=== PATIENT | male | born 1945 | race Caucasian/White ===

== ENCOUNTER 2019-07-21 14:26 | Emergency (ER) | payer MEDICARE, OTHER ==
--- NOTE | 2019-07-21 14:49 | ER Document Report ---
ED Medical Screen (RME) - General Chief Complaint: Fall Injury Stated Complaint: FALL/HEAD PAIN/HAND PAIN Time Seen by Provider: 07/21/19 14:43 Primary Care Provider: ROCIO STAUFFER MD [Primary Care Provider] - Follow up as needed Notes: HPI: 73-year-old male on Xarelto presenting for evaluation of head and hand injury from a mechanical fall. Tripped over a flower pot and fell forward. Complains of abrasion over the anterior right knee but denies difficulty with walking or hip pain. Complains of pain over the dorsal lateral aspect of the right hand and fifth finger. Complains of abrasion over the left eyebrow and face with mild headache in this region. Denies numbness or tingling in the fingertips. I have greeted and performed a rapid initial assessment of this patient. A comprehensive ED assessment and evaluation of the patient, analysis of test results and completion of the medical decision making process will be conducted by additional ED providers PHYSICAL EXAMINATION: Abrasions are noted to the right lateral eyebrow and cheek. Mild tenderness on palpation. No definitive cervical spine tenderness on exam. Abrasion over the anterior right knee but able to fully range the right leg at the knee without difficulty, no hip discomfort on range of motion. Deformity is noted to the right fifth finger and lateral aspect of the right hand with bruising and soft tissue swelling noted I have greeted and performed a rapid initial assessment of this patient. A comprehensive ED assessment and evaluation of the patient, analysis of test results and completion of medical decision making process will be conducted by an additional ED providers. - Related Data Allergies/Adverse Reactions: Penicillins Allergy (Verified 07/21/19 14:42) Physical Exam - Vital signs Vitals: Temp Pulse Resp BP Pulse Ox 98.3 F 60 20 148/69 H 96 07/21/19 14:30 07/21/19 14:30 07/21/19 14:30 07/21/19 14:30 07/21/19 14:30 Course - Vital Signs Vital signs: Temp Pulse Resp BP Pulse Ox 98.3 F 60 20 148/69 H 96 07/21/19 14:30 07/21/19 14:30 07/21/19 14:30 07/21/19 14:30 07/21/19 14:30 Doctor's Discharge - Discharge Referrals: EH,ROCIO, MD [Primary Care Provider] - Follow up as needed
--- NOTE | 2019-07-21 15:19 | RADIOLOGY REPORT (SQ) ---
EXAM DESCRIPTION: HAND RIGHT 3 VIEWS IMAGES COMPLETED DATE/TIME: 07/21/2019 3:10 pm REASON FOR STUDY: fall COMPARISON: None. EXAM PARAMETERS: NUMBER OF VIEWS: Three views. TECHNIQUE: AP, lateral and oblique radiographic images acquired of the right hand. LIMITATIONS: None. FINDINGS: MINERALIZATION: Normal. BONES: No acute fracture or dislocation. No worrisome bone lesions. Old ulnar styloid fracture. JOINTS: Degenerative changes in the 1st carpal/metacarpal joint. Degenerative changes in the proxima l and distal interphalangeal joints. SOFT TISSUES: No soft tissue swelling. No foreign body. OTHER: No other significant finding. IMPRESSION: Degenerative and chronic posttraumatic changes. No acute process. TECHNICAL DOCUMENTATION: JOB ID: [id number] 2010 [employer]- All Rights Reserved Reading location - IP/workstation name: [email or web address]
--- NOTE | 2019-07-21 15:27 | RADIOLOGY REPORT (SQ) ---
EXAM DESCRIPTION: CT HEAD WITHOUT IMAGES COMPLETED DATE/TIME: 07/21/2019 3:15 pm REASON FOR STUDY: trauma COMPARISON: None. TECHNIQUE: Axial images acquired through the brain without intravenous contrast. Images reviewed wi th bone, brain and subdural windows. Additional sagittal and coronal reconstructions were generated. Images stored on PACS. All CT scanners at this facility use dose modulation, iterative reconstruction, and/or weight based d osing when appropriate to reduce radiation dose to as low as reasonably achievable (ALARA). [facility]: Dose Right [facility]: CareDose [facility]: Dose Right [facility]: Teradose 4D [facility]: [employer] RADIATION DOSE: CT Rad equipment meets quality standard of care and radiation dose reduction techniq ues were employed. CTDIvol: 48.6 mGy. DLP: 930 mGy-cm. mGy. LIMITATIONS: None. FINDINGS: VENTRICLES: Prominent ventricles secondary to involutional atrophy. CEREBRUM: No masses. No hemorrhage. No midline shift. No evidence for acute infarction. Areas of l ow density in the white matter most likely chronic small vessel ischemic changes. CEREBELLUM: No masses. No hemorrhage. No alteration of density. No evidence for acute infarction. EXTRAAXIAL SPACES: No fluid collections. No masses. ORBITS AND GLOBE: No intra- or extraconal masses. Normal contour of globe without masses. CALVARIUM: No fracture. PARANASAL SINUSES: No fluid or mucosal thickening. SOFT TISSUES: No mass or hematoma. OTHER: No other significant finding. IMPRESSION: Involutional changes. Chronic microvascular ischemic changes. No acute intracranial im aging findings. EVIDENCE OF ACUTE STROKE: NO. COMMENT: Quality ID # [id number]: Final reports with documentation of one or more dose reduction techniques (e.g., Automated exposure control, adjustment of the mA and/or kV according to patient size, use of iterative reconstruction technique) TECHNICAL DOCUMENTATION: JOB ID: [id number] 2010 [employer]- All Rights Reserved Reading location - IP/workstation name: [email or web address]
--- NOTE | 2019-07-21 15:30 | RADIOLOGY REPORT (SQ) ---
EXAM DESCRIPTION: CT CERVICAL SPINE WITHOUT IMAGES COMPLETED DATE/TIME: 07/21/2019 3:15 pm REASON FOR STUDY: trauma COMPARISON: None. TECHNIQUE: Axial images acquired through the cervical spine without intravenous contrast. Images re viewed with lung, soft tissue and bone windows. Reconstructed coronal and sagittal MPR images review ed. Images stored on PACS. All CT scanners at this facility use dose modulation, iterative reconstruction, and/or weight based d osing when appropriate to reduce radiation dose to as low as reasonably achievable (ALARA). [facility]: Dose Right [facility]: CareDose [facility]: Dose Right [facility]: Teradose 4D [facility]: [employer] RADIATION DOSE: CT Rad equipment meets quality standard of care and radiation dose reduction techniq ues were employed. CTDIvol: 24.4 mGy. DLP: 602 mGy-cm. mGy. LIMITATIONS: None. FINDINGS: ALIGNMENT: Anatomic. MINERALIZATION: Normal. VERTEBRAL BODIES: No fractures or dislocation. DISCS: Disc narrowing from C4-C7 with marginal osteophytes. Marginal osteophytes are also found at C 2 and C3. FACETS, LATERAL MASSES, POSTERIOR ELEMENTS: Hypertrophic facet changes, left more than right. HARDWARE: None in the spine. VISUALIZED RIBS: No fractures. LUNG APICES AND SOFT TISSUES: No significant or acute findings. OTHER: No other significant finding. IMPRESSION: Degenerative disc disease, spondylosis, facet arthropathy. No acute finding. TECHNICAL DOCUMENTATION: JOB ID: [id number] Quality ID # [id number]: Final reports with documentation of one or more dose reduction techniques (e.g., Au tomated exposure control, adjustment of the mA and/or kV according to patient size, use of iterative reconstruction technique) 2010 [employer]- All Rights Reserved Reading location - IP/workstation name: [email or web address]
--- NOTE | 2019-07-21 15:48 | ER Document Report ---
ED General - General Chief Complaint: Fall Injury Stated Complaint: FALL/HEAD PAIN/HAND PAIN Time Seen by Provider: 07/21/19 14:43 Primary Care Provider: ROCIO STAUFFER MD [EMERITUS] - Follow up as needed Mode of Arrival: Ambulatory Information source: Patient Notes: triage note pt reports he tripped over a flower pot on the patio. states hit the right side of the head. c/o pain to the right hand. abrasions noted to the right side of the face and the right knee. pt is alert and oriented. resp are even and unlabored. states he is taking xarelto. pt denies loc. [place] notes HPI: 73-year-old male on Xarelto presenting for evaluation of head and hand injury from a mechanical fall. Tripped over a flower pot and fell forward. Complains of abrasion over the anterior right knee but denies difficulty with walking or hip pain. Complains of pain over the dorsal lateral aspect of the right hand and fifth finger. Complains of abrasion over the left eyebrow and face with mild headache in this region. Denies numbness or tingling in the fingertips. my notes; 73-year-old male arrives with chief complaint of head and hand injury after falling over some patio pots. He abraded his right eyebrow laterally as well as his right cheek approximately 2 cm diameter each. He also abraded his right anterior knee. His right hand is painful around his fourth and fifth me tacarpals x-rays were negative on right hand as well as CT of head and CT of neck. Patient denied any LOC. TRAVEL OUTSIDE OF THE [place] IN LAST 30 DAYS: No - HPI Onset: Just prior to arrival - Around 1330 today. Patient reports his fingerstick blood sugar at 1230 was 92. I noticed the patient had diaphoresis and he advised that he thought his blood sugar was dropping because he is IDDM. [employer] Prudence MAURO checked his blood sugar and he was 55 and was given p.o. glucose fluids [employer] - Related Data Allergies/Adverse Reactions: Penicillins Allergy (Verified 07/21/19 14:42) Home Medications: xarelto. spironolactone. felodipine. losartan potassium. atorvastatin. finasteride. levothyroxine. metoprolol. basaglar Past Medical History - General Information source: Patient - Social History Smoking Status: Former Smoker Cigarette use (# per day): No Chew tobacco use (# tins/day): No Smoking Education Provided: No Frequency of alcohol use: daily Drug Abuse: None Lives with: Family Family History: Reviewed & Not Pertinent, Malignancy - Patient was diagnosed with pancreatic cancer last year on the tip of the pancreas which was resected and patient been doing well since. This was worked up for sebaceous cyst on his left back and they found that he had the tip of pancreatic cancer. When a biopsy was done he did suffer from pancreatitis. Patient has suicidal ideation: No Patient has homicidal ideation: No - Past Medical History Cardiac Medical History: Reports: Hx Hypercholesterolemia, Hx Hypertension Review of Systems - Review of Systems Constitutional: See HPI, Diaphoresis, Weakness EENT: See HPI, Other - Abrasion to right lateral eyebrow and right cheek Cardiovascular: No symptoms reported Respiratory: No symptoms reported Gastrointestinal: No symptoms reported Genitourinary: No symptoms reported Male Genitourinary: No symptoms reported Musculoskeletal: See HPI, Joint swelling - Right hand swelling especially around fourth and fifth metacarpal areas. Patient has some abrasions also to the right hand and right proximal forearm extensor area approximately 8 cm diameter. Patient also has abrasion to his right knee approximately 2 cm Skin: No symptoms reported Hematologic/Lymphatic: No symptoms reported Neurological/Psychological: No symptoms reported Physical Exam - Vital signs Vitals: Temp Pulse Resp BP Pulse Ox 98.3 F 60 20 148/69 H 96 07/21/19 14:30 07/21/19 14:30 07/21/19 14:30 07/21/19 14:30 07/21/19 14:30 Interpretation: Normal - General General appearance: Appears well, Alert - HEENT Head: Abrasions Eyes: Normal Conjunctiva: Normal Cornea: Normal Extraocular movements intact: Yes Eyelashes: Normal Pupils: PERRL Ears: Normal Sinus: Normal Nasal: Normal Mouth/Lips: Normal Mucous membranes: Normal Pharynx: Normal Neck: Normal - Neurological Neuro grossly intact: Yes Cognition: Normal Orientation: AAOx4 Aleida Coma Scale Eye Opening: Spontaneous [place] Coma Scale Verbal: Oriented [place] Coma Scale Motor: Obeys Commands [place] Coma Scale Total: 15 Speech: Normal Cranial nerves: Normal Cerebellar coordination: Normal Motor strength normal: LUE, RUE, LLE, RLE - Psychological Associated symptoms: Normal affect - Skin Skin Temperature: Warm Skin Moisture: Diaphoretic Course - Vital Signs Vital signs: Temp Pulse Resp BP Pulse Ox 98.3 F 60 20 148/69 H 96 07/21/19 14:30 07/21/19 14:30 07/21/19 14:30 07/21/19 14:30 07/21/19 14:30 - Diagnostic Test Radiology reviewed: Reports reviewed Procedures - Laceration/Wound Repair Face Time completed: 16:12 Wound length (cm): 2 Wound's Depth, Shape: Other - 3 x 2 cm each of the right lateral eyebrow p eriorbital area and right cheek and also right knee with Dermabond applied to these abraded skin areas Laceration pre-procedure: Other - saline Anesthetic type: Other - none Wound explored: Clean Irrigated w/ Saline (mLs): 1 Wound Debrided: Minimal Wound Repaired With: Dermabond Critical Care Note - Critical Care Note Total time excluding time spent on procedures (mins): 90 Discharge - Discharge Clinical Impression: Skin abrasion, Hypoglycemia Fall Qualifiers: Encounter type: initial encounter Qualified Code(s): W19.XXXA - Unspecified fall, initial encounter Contusion of right hand Qualifiers: Encounter type: initial encounter Qualified Code(s): S60.221A - Contusion of right hand, initial encounter Condition: Good Disposition: HOME, SELF-CARE Additional Instructions: Keep wound clean and dry return to ER as needed also eat foods to keep blood sugar up as needed. Follow-up with personal doctor about your right hand if symptoms persist or return to ER if symptoms worsen. Also repeat x-ray of right hand if symptoms persist with your personal doctor and avoid using right hand if possible and apply cool compresses for around 10 minutes every hour as needed for pain Referrals: ROCIO STAUFFER MD [EMERITUS] - Follow up as needed
[2019-07-21 16:47] VITALS: BP 141/79
== END 2019-07-21 16:47 | disposition home or self-care (01) ==
LOC: ER 14:26
DX: S60.221A Contusion of right hand, initial encounter (principal); S00.81XA Abrasion of other part of head, initial encounter; S80.211A Abrasion, right knee, initial encounter; S00.212A Abrasion of left eyelid and periocular area, initial encounter; E11.649 Type 2 diabetes mellitus with hypoglycemia without coma; Z79.4 Long term (current) use of insulin; R51 Headache; W01.0XXA Fall on same level from slipping, tripping and stumbling without subsequent striking against object, initial encounter; Z79.02 Long term (current) use of antithrombotics/antiplatelets
CPT/HCPCS: 70450; 72125; 82962; 99285